=== PATIENT | female | born 1955 | race Caucasian/White ===

== ENCOUNTER 2016-09-10 23:00 | Emergency (ER) | payer OTHER ==
[~2016-09-10 23:00] MED LIST: AMB5 PO; BRINT20T PO; EFFEX75 PO; EFFEXOR XR150 MG PO; HYOSCYAMINE; MIMVEY 1-0.5 M1 EACH PO; PRIN10 PO; SEROQUEL50 MG PO; SYN.05 PO; TRAZODONE150 MG PO; V5 PO; VALIUM10 MG PO; WELLXL150 PO; WELLXL300 PO; [UNRECOGNIZED DRUG - CODE] PO
[2016-12-28] MEDS ORDERED: DEPAKOT500 PO (11:50)
[2016-12-28] MEDS ORDERED: EFFEXOR XR150 MG PO (11:51)
[2016-12-28] MEDS ORDERED: TRAZ100 PO (11:52)
[2016-12-28] MEDS ORDERED: ESTRA/NORETH1 TAB PO (11:52)
[2016-12-28] MEDS ORDERED: VALIUM10 MG PO (11:52)
[2016-12-28] MEDS ORDERED: ZESTRIL30 MG PO (11:53)
[2016-12-28] MEDS ORDERED: L80 PO (11:54)
[2016-12-28] MEDS ORDERED: CLEOCIN300 MG PO (11:54)
[2016-12-28] MEDS ORDERED: KLOR-CON M2020 MEQ PO (11:55)
== END 2016-09-11 05:50 | disposition home or self-care (01) ==
LOC: ER 23:00
DX: T16.1XXA Foreign body in right ear, initial encounter (principal); H60.91 Unspecified otitis externa, right ear; F17.200 Nicotine dependence, unspecified, uncomplicated; Z79.899 Other long term (current) drug therapy; W45.8XXA Other foreign body or object entering through skin, initial encounter
CPT/HCPCS: 99283